=== PATIENT | male | born 1980 ===

== ENCOUNTER 2019-10-01 00:26 | Inpatient (IN) | payer OTHER, SELFPAY ==
[2019-10-01] VITALS (7 sets, daily range): BP systolic 133–159; BP diastolic 75–110; PULSE 54–100; RESP 16–20; TEMP 36.7–37.2; O2SAT 95–100; BMI 17.6
--- NOTE | ~2019-10-01 | CT_ITS ---
EXAMINATION: CT abdomen pelvis w con DATE: 10/01/2019 04:47 INDICATION: Upper abdominal pain. TECHNIQUE: Computed tomography (CT) of the abdomen and pelvis was performed with 100 mL Omnipaque 350 intravenous contrast. Automated exposure control and iterative reconstruction technique were employe d. The dose-length product was 197.70 mGy-cm. COMPARISON: CT abdomen 07/19/2004, pelvis radiograph 09/22/2003 FINDINGS: The visualized portions of the lung bases are clear without pneumonia or pleural effusion. The heart size is normal. No pericardial effusion. There is diffuse hepatic steatosis. The gallbladde r, spleen, adrenal glands, and kidneys are normal. There is edema in the retroperitoneum centered at the pancreas, consistent with acute interstitial pancreatitis. There is a small volume of ascites. Th ere are no dilated loops of bowel. The appendix is normal. There are no pathologically enlarged lymph nodes. There is moderate lower lumbar spondylosis. There is a 6 mm radiopaque foreign body in the ri ght gluteus darian muscle that was present on 09/22/2003. There are 2 sclerotic lesions in the left i lium with the larger measuring 15 mm. IMPRESSION: 1. Acute interstitial pancreatitis. 2. Small volume of ascites. 3. Sclerotic lesions in the left ilium, most likely osteonecrosis or enchondromas. Reviewed, dictated and finalized at location [facility]. IMPRESSION: 1. Acute interstitial pancreatitis. 2. Small volume of ascites. 3. Sclerotic lesions in the left ilium, most likely osteonecrosis or enchondrom as.
[2019-10-01 02:37] LABS: Basophils Percent Auto 0.4 % (0.2-1.2); Eosinophils Absolute Auto 0.1 K/mm3 (0-0.3); Eosinophils Percent Auto 1.5 % (0-4.4); Hematocrit 43.8 % (42.0-52.0); Hemoglobin 15.5 g/dL (14.0-18.0); Immature Granulocyte Absolute 0.03 K/mm3 (0.00-0.031); Immature Granulocyte Percent A 0.4 % (0-0.5); Lymphocytes Percent Auto 13.5 % (18.3-44.2); Mean Corpuscular HGB Conc 35.4 g/dl (32-36); Mean Corpuscular Hemoglobin 34.1 pg (26-34); Mean Corpuscular Volume 96.5 fl (80-100); Mean Platelet Volume 11.6 fl (7.4-10.4); Monocytes Absolute Auto 0.8 K/mm3 (0.1-0.6); Monocytes Percent Auto 9.3 % (2.6-8.5); Neutrophils Absolute Auto 6.1 K/mm3 (1.3-6.7); Neutrophils Percent Auto 74.9 % (45.5-73.1); Platelet Count Result 194 k/mm3 (150-375); Red Blood Count 4.54 M/mm3 (4.6-6.20); Red Cell Distribution Width 11.8 % (11.5-14.5); White Blood Count 8.1 K/mm3 (4.5-10.0)
[2019-10-01 03:02] LABS: Add Urine Microscopic? YES; Appearance Urine Clear (Clear); Bacteria Urine Trace /hpf; Bilirubin Urine Negative (Negative); Blood Urine 1+ (Negative); Color Urine Yellow (Yellow); Glucose Urine UA Negative (Negative); Ketones Urine 2+ mg/dL (Negative); Leukocyte Esterase Ur Negative LEU/UL (Negative); Mucus Urine Few /lpf; Nitrate Urine Negative (Negative); Protein Urine Negative (Negative); Specific Grav Ur 1.014 (1.001-1.035); Urobilinogen Urine Negative mg/dL (<2.0); WBC Urine 0-3 /hpf
[2019-10-01 03:10] LABS: Alanine Aminotransferase 136 U/L (4-50); Alkaline Phosphatase 171 U/L (38-126); Aspartate Amino Transferase 316 U/L (17-59); Bilirubin,Total 2.6 mg/dL (0.2-1.3); Blood Urea Nitrogen 8 mg/dL (9-20); Calcium 8.9 mg/dL (8.4-10.2); Carbon Dioxide 26 mmol/L (22-30); Chloride 101 mmol/L (98-107); Estimated Glomerular Filt Rate > 60; Glucose 110 mg/dL (75-110); Potassium 3.2 mmol/L (3.4-5.0); Sodium 135 mmol/L (137-145)
[2019-10-01 03:20] LABS: Lipase 9843 U/L (23-300)
--- NOTE | 2019-10-01 04:16 | ED.ABDPAIN ---
HPI - Abdominal Pain General Chief Complaint: Abdominal Pain Stated Complaint: upper abd pain Time Seen by Provider: 10/01/19 04:07 Source: patient Mode of arrival: ambulatory History of Present Illness HPI narrative: This patient is a 39 year old male with heavy alcohol use who presents for evaluation severe upper abdominal pain. Patient states he developed severe upper abdominal Sunday morning after eating breakfast. His pain has been constant and it is worsening. He denies nausea, vomiting or fever with his pain. He denies previous symptoms in the past . He also denies history of gallbladder disease or pancreatitis. He drinks alcohol daily . HE denies history of alcohol withdrawal symptoms in the past. MD elicited complaint: abdominal pain Onset (ago): day(s) (1) Location: epigastric Exacerbating factors: eating Related Data Home Medications Medication Instructions Recorded Confirmed albuterol sulfate [Ventolin HFA] 2 puff INHALATION QID PRN 10/01/19 10/01/19 lisinopril-hydrochlorothiazide 1 tablet PO DAILY 10/01/19 10/01/19 omeprazole 20 mg PO DAILY 10/01/19 10/01/19 Allergies Allergy/AdvReac Type Severity Reaction Status Date / Time No Known Allergies Allergy Unverified 10/01/19 02:36 Review of Systems Review of Systems: All systems reviewed & are unremarkable except as noted in HPI and below Constitutional: Constitutional: Denies chills and Denies fever(s) Gastrointestinal: Gastrointestinal: Reports abdominal pain, Denies constipation, Denies diarrhea and Denies vomiting PMFSH Past Medical History Medical History (Updated 10/01/19 @ 05:13 by Caroline Del Cid MD) Patient denies medical problems Social History Social History (Updated 10/01/19 @ 04:18 by Caroline Del Cid MD) Smoking status: Never smoker Alcohol intake: current Drinks per week: 3 Alcohol use details: a few shots and a beer daily, last alcohol use Sunday Substance use: never Gender identity (if verbalized by the patient): Male Spiritual care concerns: No Exam Const: General: alert Orientation/consciousness: patient oriented x3 Other: restless, standing pacing due to severe pain. Eyes: Pupils: Equal, round and reactive pupils present EOM: EOMs intact bilaterally Chest: Chest palpation & inspection: normal inspection of the chest Resp: Effort & Inspection: normal respiratory effort Auscultation: clear to auscultation bilaterally Cardio: Rate: regular rate Rhythm: regular rhythm Heart sounds: no murmurs GI: GI Palp: Yes Soft to palpation, Yes Tenderness to palpation present (GI) (upper abdomen), Yes Guarding due to palpation present (GI) and No Rigid due to palpation Skin: General skin exam: normal color Rashes: no rashes Extrem: General: no pedal edema Course Reevaluation(s) Reevaluation #1: I have discussed with patient that he has severe pancreatitis due to alcohol use. Date: 10/01/19 Time: 05:10 Consultations Consultation #1: I discussed case with Dr. verdugo who accepts patient for alcoholic pancreatits. she recommends IVF at rate 200 ml/hr Date: 10/01/19 Time: 05:11 Vital Signs Vital signs: Vital Signs Temperature 98.9 F 10/01/19 01:01 Pulse Rate 100 10/01/19 01:01 Respiratory Rate 20 10/01/19 01:01 Blood Pressure 155/110 H 10/01/19 01:01 Pulse Oximetry 100 10/01/19 01:01 Temperature 98.3 F 10/01/19 06:00 Pulse Rate 54 L 10/01/19 06:00 Respiratory Rate 18 10/01/19 06:00 Blood Pressure 155/91 H 10/01/19 06:00 Pulse Oximetry 95 10/01/19 06:00 MDM - Abdominal Pain Lab Data Attestation: I reviewed the patient's lab results. Result diagrams: 10/01/19 01:09 10/01/19 01:09 Labs: Lab Results 10/01/19 10/01/19 10/01/19 Range/Units 01:09 01:09 02:38 WBC 8.1 (4.5-10.0) K/mm3 RBC 4.54 L (4.6-6.20) M/mm3 Hgb 15.5 (14.0-18.0) g/dL Hct 43.8 (42.0-52.0) % MCV 96.5 (80-100) fl MCH 34.1 H
[2019-10-01] MEDS: LACTATED RINGERS 1,000 ML 999 ML IV CONT (04:30)
[2019-10-01] MEDS: ONDANSETRON INJ 4 MG/2 ML VIAL IV PUSH ×2 (04:30→20:00)
[2019-10-01] MEDS: HYDROMORPHONE HCL 1 MG/ML INJ IV PUSH ×4 (04:30→12:46)
--- NOTE | 2019-10-01 05:35 | ADMGEN ---
This patient, Van Echevarria, was admitted to Medical Room 343-01. Patient/family oriented to hospital policies and general routines including ID bracelet, bed and alarms, visiting hours, pain management, procedures, bathroom and other care routines, personal items, smoking policy, room service/diet, and visiting hours. Valuables list has been completed. Information on how to activate the Rapid Response Team has been discussed. Patient/Family are encouraged to report perceived risks to care and to ask questions if they do not understand what they are told or what they should do.
[2019-10-01] MEDS: SODIUM CHLORIDE 0.9% IV 1,000 ML 200 ML IV CONT ×2 (06:06→12:06)
[2019-10-01] MEDS: PANTOPRAZOLE SODIUM IV 40 MG VIAL IV PUSH (08:44)
[2019-10-01] MEDS: HYDROMORPHONE HCL 1 MG/ML INJ 2 MG IV PUSH ×2 (15:52→20:00)
--- NOTE | 2019-10-01 18:02 | PM.IMHP ---
H&P: HPI History of Present Illness Chief complaint: acute alcholic pancretitis Narrative: Van Echevarria is a 39 year old male admitted with severe abdominal pains, last on Sunday then moving to the back 02/06 today is 10/07. Pt never had this problem before. Pt likes to drink 5-6 beers a day. to help him relax. pt has a history of gerd and takes omeprazole for this. Admission ct shows - 1. Acute interstitial pancreatitis. 2. Small volume of ascites. 3. Sclerotic lesions in the left ilium, most likely osteonecrosis or enchondromas. Lipase level is extremely high at 9834 Pt is usually healthy man history of HTN and hypercholesteremia. Review of Systems Review of Systems: All systems reviewed & are unremarkable except as noted in HPI and below Gastrointestinal: Comments: Abdominal pains severe PMFSH Past Medical History Medical History Patient denies medical problems Social History Social History Smoking status: Never smoker Alcohol intake: current Drinks per week: 3 Alcohol use details: a few shots and a beer daily, last alcohol use Sunday Substance use: never Gender identity (if verbalized by the patient): Male Spiritual care concerns: No Meds Home Medications and Allergies Home Medications Medication Instructions Recorded Confirmed Type albuterol sulfate [Ventolin HFA] 2 puff INHALATION QID PRN 10/01/19 10/01/19 History lisinopril-hydrochlorothiazide 1 tablet PO DAILY 10/01/19 10/01/19 History omeprazole 20 mg PO DAILY 10/01/19 10/01/19 History Allergies Allergy/AdvReac Type Severity Reaction Status Date / Time No Known Allergies Allergy Unverified 10/01/19 02:36 Vital Signs Vital Signs - 24 hr 10/01/19 01:01 10/01/19 05:23 10/01/19 06:00 Temperature 37.2 C 37.1 C 36.8 C Pulse Rate 100 60 54 L Respiratory Rate 20 17 18 Blood Pressure 155/110 H 159/96 H 155/91 H Pulse Oximetry 100 100 95 10/01/19 14:00 Temperature 36.7 C Pulse Rate 60 Respiratory Rate 20 Blood Pressure 139/85 Pulse Oximetry 97 Exam Const: General: well developed Nutritional Appearance: well nourished HENMT: Head: normocephalic Eyes: General: appearance normal, both eyes and all related structures Pupils: Equal, round and reactive pupils present Neck: Neck: supple Chest: Chest palpation & inspection: normal inspection of the chest Resp: Effort & Inspection: normal respiratory effort Auscultation: clear to auscultation bilaterally Cardio: Jugular venous distension: no JVD Rhythm: regular rhythm Heart sounds: S1 normal heart sound present and S2 normal heart sound present GI: Inspection: normal to inspection GI Palp: Yes Tenderness to palpation present (GI) (over epigastric area ) and Yes Guarding due to palpation present (GI) Auscultation: normal bowel sounds : General: Yes no CVA tenderness Back/Spine/Pelvis: Back: no CVA tenderness Skin: General skin exam: normal color and dry skin Neuro: Cranial nerves: Yes CN's II-XII intact bilaterally and Yes Equal, round and reactive pupils present Cognition (Neuro): normal cognition Speech: normal speech Motor exam (neuro): 5/5 motor strength present throughout Extrem: General: normal to inspection Psych: Appearance: grossly normal Mental Status: mental status grossly normal H&P: Results Labs Labs: Short CBC 10/01/19 Range/Units 01:09 WBC 8.1 (4.5-10.0) K/mm3 Hgb 15.5 (14.0-18.0) g/dL Hct 43.8 (42.0-52.0) % Plt Count 194 (150-375) k/mm3 BMP 10/01/19 01:09 Sodium 135 L Potassium 3.2 L Chloride 101 Carbon Dioxide 26 BUN 8 L Creatinine 0.70 Glucose 110 Calcium 8.9 Liver Function 10/01/19 Range/Units 01:09 Total Bilirubin 2.6 H (0.2-1.3) mg/dL AST 316 H (17-59) U/L ALT 136 H (4-50) U/L Alkaline Phosphatase 171 H (38-126) U/L Albumin 4.0
[2019-10-01] MEDS: SODIUM CHLORIDE 0.9% IV 1,000 ML 75 ML IV CONT (18:34)
[2019-10-01] MEDS: THIAMINE HCL 200 MG/2 ML VIAL 100 MG IM (18:35)
[2019-10-01 19:16] LABS: Lipase 9656 U/L (23-300)
[2019-10-02] VITALS (9 sets, daily range): BP systolic 136–148; BP diastolic 86–108; PULSE 74–109; RESP 14–20; TEMP 36.4–37; O2SAT 94–97
[2019-10-02] MEDS: HYDROMORPHONE HCL 1 MG/ML INJ 2 MG IV PUSH ×5 (00:18→19:29)
[2019-10-02] MEDS: ONDANSETRON INJ 4 MG/2 ML VIAL IV PUSH ×5 (00:18→19:27)
[2019-10-02 05:46] LABS: Basophils Percent Auto 0.1 % (0.2-1.2); Eosinophils Percent Auto 0.1 % (0-4.4); Hematocrit 41.5 % (42.0-52.0); Hemoglobin 14.2 g/dL (14.0-18.0); Immature Granulocyte Absolute 0.11 K/mm3 (0.00-0.031); Immature Granulocyte Percent A 0.7 % (0-0.5); Lymphocytes Absolute Auto 0.66 K/mm3 (0.9-3.2); Lymphocytes Percent Auto 4.5 % (18.3-44.2); Mean Corpuscular HGB Conc 34.2 g/dl (32-36); Mean Corpuscular Volume 99.3 fl (80-100); Monocytes Percent Auto 6.9 % (2.6-8.5); Neutrophils Absolute Auto 12.9 K/mm3 (1.3-6.7); Neutrophils Percent Auto 87.7 % (45.5-73.1); Platelet Count Result 152 k/mm3 (150-375); Red Blood Count 4.18 M/mm3 (4.6-6.20); Red Cell Distribution Width 11.7 % (11.5-14.5); White Blood Count 14.7 K/mm3 (4.5-10.0)
--- NOTE | 2019-10-02 05:59 | PC.NURSE ---
intake was 3 small cups of ice chips
[2019-10-02 06:04] LABS: Alanine Aminotransferase 78 U/L (4-50); Albumin Level 3.2 g/dL (3.5-5.1); Alkaline Phosphatase 114 U/L (38-126); Aspartate Amino Transferase 132 U/L (17-59); Bilirubin,Total 1.2 mg/dL (0.2-1.3); Blood Urea Nitrogen 4 mg/dL (9-20); Calcium 7.8 mg/dL (8.4-10.2); Carbon Dioxide 25 mmol/L (22-30); Chloride 102 mmol/L (98-107); Estimated CRCL calculation 98 ml/min; Estimated Glomerular Filt Rate > 60; Glucose 74 mg/dL (75-110); Potassium 3.4 mmol/L (3.4-5.0); Sodium 133 mmol/L (137-145)
[2019-10-02 06:37] LABS: Lipase 4984 U/L (23-300)
[2019-10-02] MEDS: SODIUM CHLORIDE 0.9% IV 1,000 ML 75 ML IV CONT ×2 (08:14→22:20)
[2019-10-02] MEDS: PANTOPRAZOLE SODIUM IV 40 MG VIAL IV PUSH (08:14)
--- NOTE | 2019-10-02 14:57 | PM.IMPN ---
Progress Note: A&P Assessment and Plan (1) Acute alcoholic pancreatitis: Code(s): K85.20 - Alcohol induced acute pancreatitis without necrosis or infection Status: Acute Assessment and Plan: pt is npo with iv fluids, pt is on iv dilaudid continue to watch, continue to monitor lipase levels. started on clears today, lipase is down from 9000 to 4000 (2) Alcohol use: Code(s): Z72.89 - Other problems related to lifestyle Status: Acute Assessment and Plan: watch for any DT ciwa ordered (3) HTN (hypertension): Code(s): I10 - Essential (primary) hypertension Status: Acute Assessment and Plan: oral bp medications are on hold pt can use iv hydralazine prn high bps Subjective Date/time seen: 10/02/19 14:57 Interval history: Van Echevarria is a 39 year old male admitted alcoholic pancreatitis, abdominal pains are better, lipase level coming down will try pt on clears today. few shakes yesterday but no actual tremor. Review of Systems Review of Systems: All systems reviewed & are unremarkable except as noted in HPI and below Gastrointestinal: Gastrointestinal: Reports abdominal pain, Denies nausea and Denies vomiting Exam Const: General: well developed Nutritional Appearance: well nourished Chest: Chest palpation & inspection: normal inspection of the chest Resp: Effort & Inspection: normal respiratory effort Auscultation: clear to auscultation bilaterally Cardio: Jugular venous distension: no JVD Rhythm: regular rhythm Heart sounds: S1 normal heart sound present and S2 normal heart sound present GI: Inspection: normal to inspection GI Palp: Yes abdominal tenderness and Yes Other GI palpation findings present (epigastric mild ) Neuro: Cranial nerves: Yes CN's II-XII intact bilaterally and Yes Equal, round and reactive pupils present Cognition (Neuro): normal cognition Speech: normal speech Motor exam (neuro): 5/5 motor strength present throughout Extrem: General: normal to inspection Psych: Appearance: grossly normal Mental Status: mental status grossly normal Objective Data Vital Signs Vital Signs: Vital Signs - 24 hr 10/01/19 18:31 10/01/19 20:00 10/01/19 20:29 Temperature 36.8 C Pulse Rate 69 Pulse Rate [Right Monitor] 88 69 Respiratory Rate 16 Blood Pressure 133/75 Pulse Oximetry 96 10/02/19 00:36 10/02/19 04:46 10/02/19 04:59 Temperature 37.0 C Pulse Rate 76 Pulse Rate [Right Monitor] 74 74 Respiratory Rate 14 Blood Pressure 141/86 H 141/86 H Pulse Oximetry 94 10/02/19 05:00 10/02/19 08:00 10/02/19 12:00 Temperature Pulse Rate Pulse Rate [Right Monitor] 80 82 96 Respiratory Rate Blood Pressure 137/86 136/101 H Pulse Oximetry 10/02/19 14:36 Temperature 36.4 C Pulse Rate 109 H Pulse Rate [Right Monitor] Respiratory Rate 20 Blood Pressure 148/95 H Pulse Oximetry 97 Intake/Output Intake/Output: Intake & Output 09/29/19 09/30/19 10/01/19 10/02/19 23:59 23:59 23:59 23:59 Intake Total 2900 1450 Output Total 1200 900 Balance 1700 550 Meds/Results Medications: Active Medications Generic Name Dose Route Start Last Admin Trade Name Freq PRN Reason Stop Dose Admin Hydralazine HCl 10 mg 10/01/19 18:13 Apresoline Hcl Inj IV PUSH Q8H PRN Blood Pressure - High Hydromorphone HCl 2 mg 10/02/19 10:09 Dilaudid Inj IV PUSH Q6H PRN Pain Rated 7-10 Sodium Chloride 1,000 mls @ 75 mls/hr 10/01/19 05:10 10/02/19 08:14 Normal Saline Iv IV CONT 75 mls/hr .[id number] SARAH Administration Lorazepam 0.5 mg 10/01/19 18:13 Ativan Inj IV PUSH Q6H PRN Alcohol Withdrawal Ondansetron HCl 4 mg 10/01/19 05:08 10/02/19 08:58 Zofran Inj IV PUSH 4 mg Q4H PRN Administration Nausea Pantoprazole Sodium 40 mg 10/01/19 09:00 10/02/19 08:14 Protonix Iv IV PUSH 40 mg QAM SARAH Administration Radiology Results:
[2019-10-02 18:38] LABS: Lipase 1810 U/L (23-300)
[2019-10-03] VITALS (8 sets, daily range): BP systolic 140–161; BP diastolic 92–109; PULSE 79–97; RESP 16–18; TEMP 36.2–36.3; O2SAT 94–98
[2019-10-03] MEDS: ONDANSETRON INJ 4 MG/2 ML VIAL IV PUSH ×3 (01:33→20:39)
[2019-10-03] MEDS: HYDROMORPHONE HCL 1 MG/ML INJ 2 MG IV PUSH ×2 (01:36→12:14)
[2019-10-03] MEDS: PANTOPRAZOLE SODIUM IV 40 MG VIAL IV PUSH (08:05)
--- NOTE | 2019-10-03 11:13 | PCNFU ---
Nutrition Follow-Up Complete: Underweight as related to decreased muscle mass as evidenced by BMI: 17.6 Goal: adequate intake of at least 75% of meals Progressing towards goal. We will continue current goal. Pt current nutrition is Clear liquid advancing to Soft and Bite Sized, Level 6. Nutrition recommendation: Agree Last recorded weight is 57.2 kg. Bowel Motility:+BM noted 09/29 Labs Reviewed:Alb 3.2,Na 133,BUN 4,Glu 74 Meds Noted:Juani Ordaz Additional Notes: I spoke with patient today, he was working on his clear liquid tray. He is trying to drink some of the Ensure Clear which is providing an additional 240 kcals and 8 gms protein. He states to Nausea today. Diet order has been advanced to a soft and bite sized, Level 6 diet for lunch. PO intake encouraged. Monitoring:will monitor every 3 days.
[2019-10-03] MEDS: SUCRALFATE SUSP 100 MG/ML 10 ML UDC 1000 MG PO ×3 (12:13→20:41)
[2019-10-03] MEDS: SODIUM CHLORIDE 0.9% IV 1,000 ML 75 ML IV CONT (12:17)
--- NOTE | 2019-10-03 13:07 | PM.IMPN ---
Progress Note: A&P Assessment and Plan (1) Acute alcoholic pancreatitis: Code(s): K85.20 - Alcohol induced acute pancreatitis without necrosis or infection Status: Acute Assessment and Plan: Pt is on soft diet, pt is on iv dilaudid iv every 6hours, continue to watch, continue to monitor lipase levels, hopeful discharge soon (2) Alcohol use: Code(s): Z72.89 - Other problems related to lifestyle Status: Acute Assessment and Plan: Watch for any DT Ciwa ordered Adviced to cut back drinking beer every day likes to drink 5-6 beers a day (3) HTN (hypertension): Code(s): I10 - Essential (primary) hypertension Status: Acute Assessment and Plan: Restart pts Bp medications Subjective Date/time seen: 10/03/19 13:07 Interval history: Van Echevarria is a 39 year old male admitted alcoholic pancreatitis, abdominal pains are better, lipase level coming down will try pt on soft diet today. no signs of DT. Review of Systems Review of Systems: All systems reviewed & are unremarkable except as noted in HPI and below Gastrointestinal: Gastrointestinal: Denies abdominal pain and Reports dyspepsia Exam Const: General: well developed Nutritional Appearance: well nourished HENMT: Head: normocephalic Eyes: General: appearance normal, both eyes and all related structures Pupils: Equal, round and reactive pupils present Neck: Neck: supple Chest: Chest palpation & inspection: normal inspection of the chest Resp: Effort & Inspection: normal respiratory effort Auscultation: clear to auscultation bilaterally Cardio: Jugular venous distension: no JVD Rhythm: regular rhythm Heart sounds: S1 normal heart sound present and S2 normal heart sound present GI: Inspection: normal to inspection and other (no abdominal tenderness ) Skin: General skin exam: normal color and dry skin Neuro: Cranial nerves: Yes CN's II-XII intact bilaterally and Yes Equal, round and reactive pupils present Cognition (Neuro): normal cognition Speech: normal speech Motor exam (neuro): 5/5 motor strength present throughout Extrem: General: normal to inspection Psych: Appearance: grossly normal Mental Status: mental status grossly normal Objective Data Vital Signs Vital Signs: Vital Signs - 24 hr 10/02/19 14:36 10/02/19 16:00 10/02/19 22:00 Temperature 36.4 C 36.6 C Pulse Rate 109 H 90 Pulse Rate [Right Monitor] 96 Respiratory Rate 20 16 Blood Pressure 148/95 H 139/104 H 148/108 H Pulse Oximetry 97 95 10/03/19 04:54 10/03/19 08:00 10/03/19 12:00 Temperature 36.3 C L Pulse Rate 91 Pulse Rate [Right Monitor] 96 96 Respiratory Rate 16 Blood Pressure 140/99 H 140/99 H 140/99 H Pulse Oximetry 94 Intake/Output Intake/Output: Intake & Output 09/30/19 10/01/19 10/02/19 10/03/19 23:59 23:59 23:59 23:59 Intake Total 2900 2690 1500 Output Total 1200 900 150 Balance 1700 1790 1350 Meds/Results Medications: Active Medications Generic Name Dose Route Start Last Admin Trade Name Freq PRN Reason Stop Dose Admin Hydralazine HCl 10 mg 10/01/19 18:13 Apresoline Hcl Inj IV PUSH Q8H PRN Blood Pressure - High Hydromorphone HCl 2 mg 10/02/19 10:09 10/03/19 12:14 Dilaudid Inj IV PUSH 2 mg Q6H PRN Administration Pain Rated 7-10 Sodium Chloride 1,000 mls @ 75 mls/hr 10/01/19 05:10 10/03/19 12:17 Normal Saline Iv IV CONT 75 mls/hr .[id number] SARAH Administration Lorazepam 0.5 mg 10/01/19 18:13 Ativan Inj IV PUSH Q6H PRN Alcohol Withdrawal Ondansetron HCl 4 mg 10/01/19 05:08 10/03/19 08:05 Zofran Inj IV PUSH 4 mg Q4H PRN Administration Nausea Pantoprazole Sodium 40 mg 10/01/19 09:00 10/03/19 08:05 Protonix Iv IV PUSH 40 mg QAM SARAH Administration Sucralfate 1,000 mg 10/03/19 11:28 10/03/19 12:13 Carafate PO 1,000 mg TID PRN Administration Heartburn Radiology
[2019-10-03 15:45] LABS: Lipase 582 U/L (23-300)
[2019-10-03] MEDS: hydrALAZINE HCL 20 MG/ML VIAL 10 MG IV PUSH (20:39)
[2019-10-03] MEDS: HYDROMORPHONE HCL 1 MG/ML INJ IV PUSH (20:40)
[2019-10-04] VITALS (8 sets, daily range): BP systolic 122–146; BP diastolic 78–97; PULSE 68–92; RESP 15–20; TEMP 36.2–36.6; O2SAT 96–100
[2019-10-04] MEDS: SUCRALFATE SUSP 100 MG/ML 10 ML UDC 1000 MG PO ×3 (00:15→20:17)
[2019-10-04 08:27] LABS: Hematocrit 39.8 % (42.0-52.0); Hemoglobin 13.8 g/dL (14.0-18.0); Mean Corpuscular HGB Conc 34.7 g/dl (32-36); Mean Corpuscular Hemoglobin 33.4 pg (26-34); Mean Corpuscular Volume 96.4 fl (80-100); Mean Platelet Volume 10.5 fl (7.4-10.4); Platelet Count Result 214 k/mm3 (150-375); Red Blood Count 4.13 M/mm3 (4.6-6.20); Red Cell Distribution Width 11.3 % (11.5-14.5); White Blood Count 5.4 K/mm3 (4.5-10.0)
[2019-10-04] MEDS: PANTOPRAZOLE SODIUM IV 40 MG VIAL IV PUSH (08:48)
[2019-10-04] MEDS: lisinopriL 20 MG TABLET PO (08:48)
[2019-10-04] MEDS: hydroCHLOROthiazide 25 MG TABLET PO (08:48)
[2019-10-04 08:50] LABS: Lipase 1087 U/L (23-300)
[2019-10-04 09:07] LABS: Blood Urea Nitrogen 10 mg/dL (9-20); Calcium 8.5 mg/dL (8.4-10.2); Carbon Dioxide 32 mmol/L (22-30); Chloride 94 mmol/L (98-107); Estimated CRCL calculation 98 ml/min; Estimated Glomerular Filt Rate > 60; Glucose 100 mg/dL (75-110); Potassium 3.3 mmol/L (3.4-5.0); Sodium 130 mmol/L (137-145)
--- NOTE | 2019-10-04 11:36 | PM.IMPN ---
Progress Note: A&P Assessment and Plan (1) Acute alcoholic pancreatitis: Code(s): K85.20 - Alcohol induced acute pancreatitis without necrosis or infection Status: Acute Assessment and Plan: He presented with severe abdominal pain. CT abd/pelvis revealed acute interstitial pancreatitis. Lipase was elevated at 9656 initially and trended down. IV fluids were discontinued yesterday as his lipase was trending down. He refused his meals yesterday. He did not eat today because he reports that he thought he was going home. I have encouraged that he try a clear liquid diet today and advance as tolerated. He reports that his pain, nausea, and vomiting have resolved. His lipase is elevated today at 1502 (previously 582 10/03). Plan to resume IV fluids. Will continue to monitor. (2) Alcohol use: Code(s): Z72.89 - Other problems related to lifestyle Status: Acute Assessment and Plan: The patient reports that he drinks approximately 6 beers per day. He has expressed the desire to quit drinking and plans to stop drinking at discharge. Alcohol cessation was encouraged. Continue CIWA protocol with ativan PRN. (3) HTN (hypertension): Code(s): I10 - Essential (primary) hypertension Status: Acute Assessment and Plan: Blood pressures were reviewed and are improving. Lisinopril and hydrochlorothiazide were resumed today. Will conitnue to monitor. (4) GERD (gastroesophageal reflux disease): Code(s): K21.9 - Gastro-esophageal reflux disease without esophagitis Status: Acute Assessment and Plan: He reported heartburn yesterday which he states has resolved today. Continue protonix. Continue sucralfate PRN. Will continue to monitor. Subjective Date/time seen: 10/04/19 11:36 Interval history: Mr. Echevarria is seen and examined at bedside in follow-up for pancreatitis. He has a hx of alcohol dependence. He reports that he is feeling much better today and is requesting to leave. He denies nausea, vomiting, and abdominal pain. He reported heartburn yesterday which he reports has resolved. He did not eat breakfast today and states that this is because he thought he was leaving. He has no other concerns. He had a bowel movement yesterday and is passing gas. He has no other complaints at this time. Review of Systems Review of Systems: All systems reviewed & are unremarkable except as noted in HPI and below Exam Narrative: Exam Narrative: General: Pleasant, well-developed, and well-nourished 39 y.o. male who is lying in the semi-recumbent position in bed in no acute distress. HEENT: Normocephalic and atraumatic. Conjunctivae and lids normal. EOMI. Mucous membranes moist. Neck: Supple without lymphadenopathy or masses. Cardiac: Regular rate and rhythm. S1 and S2 normal. Lungs: Effort normal. Lungs are clear to auscultation bilaterally. Abdomen: Bowel sounds are normoactive. Abdomen is soft, non-distended, and non-tender. No rebound or guarding present. Extremities: No edema to the lower extremities bilaterally. Shahnaz negative. Neurological: Alert. Exam is non-focal. Speech is clear. No tremor appreciated. Skin: Warm and dry. Turgor normal. Psychiatric: Judgment and insight intact. Mood pleasant and affect normal. Objective Data Vital Signs Vital Signs: Vital Signs - 24 hr 10/03/19 12:00 10/03/19 14:00 10/03/19 16:00 Temperature 97.2 F L Pulse Rate 79 Pulse Rate [Right Monitor] 96 96 Respiratory Rate 18 Blood Pressure 140/99 H 152/109 H 152/109 H Pulse Oximetry 98 10/03/19 18:30 10/03/19 20:23 10/03/19 20:57 Temperature 97.3 F L Pulse Rate 97 Pulse Rate [Right Monitor] 97 Respiratory Rate 16 Blood Pressure 144/92 H 161/97 H Pulse Oximetry 95 10/04/19 00:00 10/04/19 04:38 10/04/19 05:07 Temperature 98 F Pulse Rate 89 Pulse Rate [Right Monitor] 68 92 Respiratory Rate 16 Blood Pressure 143/97 H Pulse Oximetry 9
[2019-10-04 12:02] LABS: Lipase 1502 U/L (23-300)
[2019-10-04] MEDS: POTASSIUM CHLORIDE 20 MEQ TABLET 40 MEQ PO (12:20)
[2019-10-04] MEDS: LACTATED RINGERS 1,000 ML 150 ML IV CONT ×2 (12:21→18:45)
[2019-10-04 13:43] LABS: Alanine Aminotransferase 43 U/L (4-50); Albumin Level 3.5 g/dL (3.5-5.1); Alkaline Phosphatase 123 U/L (38-126); Aspartate Amino Transferase 64 U/L (17-59)
[2019-10-04] MEDS: LORAZEPAM INJ 2 MG/ML VIAL 0.5 MG IV PUSH (20:16)
--- NOTE | 2019-10-04 21:52 | PM.EVENT ---
Event Note Event Note Event Note: Nursing informed me that that patient has decided to SIGN OUT AGAINST MEDICAL ADVICE as he stated He was done with this place'. The patient was alert and oriented per nursing. On my arrival to the floor the patient has already signed out and left.
--- NOTE | 2019-10-05 01:03 | PC.NURSE ---
PT INQUIRING ABOUT LEAVING AGAINST MEDICAL ADVICE PROTOCOLS. ALSO ASKING THIS NURSE ON IF I WAS AWARE OF THE PARTICULARS OF WHY HE WAS HERE. AFTER ACKNOWLEDGING HIS SITUATION PATIENT STATES ' THEN YOU SEE WHY I CAN'T DO THIS ANYMORE . EDUCATED PATIENT ON CURRENT CONDITION AND TREATMENTS RELATED TO HIS CARE. PATIENT VERBALIZED HIS UNDERSTANDING ALONG WITH THE DECISION TO PROCEED WITH LEAVING AMA. BOTH FINANCIAL AID AND HOSPITALIST ON STAFF WERE NOTIFIED. FINANCIAL AID CAME TO SPEAK TO PATIENT. PATIENT MAINTAINED HIS DESIRE TO LEAVE AMA. AMA PAPERWORK WAS SIGNED BY PATIENT AND HE WAS ESCORTED OUTSIDE WITH BELONGINGS IN HAND.
== END 2019-10-04 21:15 | disposition left against medical advice (07) | DRG 440 ==
LOC: ANHED 05:13 → ANH3MED 08:50
PROVIDERS: Family Medicine; Admitting Provider Internal Medicine; Emergency Provider General Practice; PCP Family Medicine; Visit Provider Physician Assistant
DX: K85.20 Alcohol induced acute pancreatitis without necrosis or infection (principal); F10.20 Alcohol dependence, uncomplicated; I10 Essential (primary) hypertension; K21.9 Gastro-esophageal reflux disease without esophagitis
CPT/HCPCS: 36415; 74177; 80048; 80053; 81001; 83690; 85025; 85027; 96361; 96374; 96375; 99285; A9270; C9113; J0360; J1170; J2060; J2405; J3411; J7030; J7120; Q9967

== ENCOUNTER 2020-07-21 11:27 | Outpatient (CLI) | payer OTHER, SELFPAY ==
--- NOTE | ~2020-07-21 | US_ITS ---
US right upper quadrant DATE: 07/21/2020 11:57 INDICATION: Acute pancreatitis without necrosis TECHNIQUE: Real-time imaging of the liver, pancreas, gallbladder areas COMPARISON: 10/01/[address] abdomen pelvis FINDINGS: There is enlargement and heterogeneous echotexture of the pancreas and peripancreatic fluid , consistent with pancreatitis. There is a fluid containing structure adjacent to the pancreas, most likely fluid distended stomach. Consider CT abdomen correlation. No hepatic space-occupying mass lesi on is evident. Hepatic steatosis. Normal hepatopedal portal venous flow direction. No gallstones or gallbladder wall thickening. Negative sonographic Em's sign. The common bile zoya t measures 3.3 mm, normal. IMPRESSION: Enlargement and heterogeneous echotexture of the pancreas and peripancreatic fluid, consi stent with pancreatitis Reviewed, dictated and finalized at [facility]. Reviewed, dictated and finalized at location [facility]. IMPRESSION: Enlargement and heterogeneous echotexture of the pancreas and perip ancreatic fluid, consistent with pancreatitis
== END 2020-07-21 11:28 | disposition home or self-care (01) ==
PROVIDERS: PCP Family Medicine; Visit Provider Physician Assistant
DX: K85.90 Acute pancreatitis without necrosis or infection, unspecified (principal)
CPT/HCPCS: 76705

== ENCOUNTER 2024-07-28 11:56 | Emergency (ER) | payer OTHER, SELFPAY ==
[2024-07-28 12:05] VITALS: BP 176/96; PULSE 102; RESP 16; TEMP 36.4; O2SAT 99
--- NOTE | 2024-07-28 12:15 | ED.WOUNDLAC ---
HPI - Wound/Laceration General Chief Complaint: Wound/Laceration Stated Complaint: Head Injury Source: patient Mode of arrival: ambulatory Limitations: no limitations History of Present Illness HPI narrative: 44 y/o male presented for c/o laceration to right frontal scalp area sustained today while at work. Says a steel beam fell down from the ceiling and struck his head and right leg. Denies LOC. Denies headache, vision changes, dizziness, nausea, vomiting, numbness, tingling or weakness. Endorses bruising to the right inner thigh without open wounds. On arrival pt declines to update tetanus and declines doretha. Related Data Home Medications ?Medication ?Instructions ?Recorded ?Confirmed ?Last Taken ?Type omeprazole 20 mg capsule,delayed 20 mg PO DAILY 10/01/19 07/11/22 09/29/19 History release ferrous fumarate 325 mg (106 mg 325 mg PO DAILY 07/11/22 07/11/22 Unknown History iron) tablet Allergies Allergy/AdvReac Type Severity Reaction Status Date / Time No Known Allergies Allergy Verified 07/28/24 12:07 Review of Systems Review of Systems: CONSTITUTIONAL: Denies body aches, fever, chills, or sweats. EYES: Denies visual changes, redness, or discharge. ENT: Denies rhinorrhea, congestion CARDIOVASCULAR: Denies chest pain, palpitations, or edema. RESPIRATORY: Denies cough or dyspnea. GASTROINTESTINAL: Denies abdominal pain, nausea, vomiting, or diarrhea. SKIN: reports laceration to scalp; bruising right leg NEUROLOGIC: Denies headache, numbness, tingling, or weakness. [facility] Past Medical History Medical History (Updated 07/28/24 @ 12:17 by Marisabel Gallagher APRN) Anemia due to chronic blood loss Alcohol use disorder, moderate, in early remission, dependence Other chronic pancreatitis Spontaneous tension pneumothorax Social History Social History Smoking status: Never smoker Second hand tobacco smoke exposure: No Alcohol intake: former Alcohol use details: 42 days alcohol free Substance use: never Substance use type: does not use Lack of Transportation: No Lack of Food: Never True Current Housing: I Have Housing Concerned About Future Housing: No Difficulty Paying Gas/Electric Bills: No Difficulty Paying for Meds: No Currently Unemployed: No Difficulty w/ Childcare or Family Care: No Living arrangements: with family Occupation/Education: occupation Gender identity (if verbalized by the patient): Male Sexual Orientation (if Verbalized by the Patient): Straight or Heterosexual Spiritual care concerns: No Comments At time of signature, I have reviewed and agree with nursing past medical, surgical, social and family history unless otherwise noted. Please see nursing chart for further information. There is no relevant family history pertinent to the presenting complaint Exam Narrative: GENERAL: Well-appearing HEAD: Right frontal scalp laceration, 2cm length, gaping, small amount active bleeding. EYES: conjunctivae clear, PERRLA, and EOMI. ENT: Mucous membranes moist. Oropharynx without edema, erythema or lesions. CHEST: Clear to auscultation. HEART: Regular rate and rhythm. SKIN: Warm, dry. Right medial calf with bruising, no open wound. NEURO: Alert and oriented x3. No deficits. Involuntary tremor. Course Course Emergency Course: Patient is aware of diagnosis, understands and agrees to treatment plan. Anticipatory guidance given. Patient agrees to follow-up as directed and is aware of reasons to seek care at the emergency department. Portions of this record may have been created with voice recognition software Level of Care: Express Care Visit Vital Signs Vital signs: Vital Signs Temperature 97.5 F L 07/28/24 12:05 Pulse Rate 102 H 07/28/24 12:05 Respiratory Rate 16 07/28/24 12:05 Blood Pressure 176/96 H 07/28/24 12:05 Pulse Oximetry 99 07/28/24 12:05 Oxygen Delivery Room Air 07/28/24 12:05 Temperature 97.5 F L 07/28/24 12:05 Pulse Rate 102 H 07/28/24 12:05 Respiratory Rate 16 07/28/24 12:05 Blood Pressure 176/96 H 07/28/24 12:05 Pulse Oximetry 99 07/28/24 12:05 Oxygen Delivery Room Air 07/28/24 12:05 Reviewed Procedures Laceration right frontal scalp: Date: 07/28/24 Size (cm): 2 Description: linear and clean Depth: simple, single layer Pre-repair: irrigated ====== Skin Level ====== Skin layer closed with: dermabond (hair apposition technique) ====== Subcutaneous Layer ====== ====== Muscle Layer ====== ====== Tendon Layer ====== Dressing: Pt refused doretha. Utilized hair apposition technique with proximal wound edge approximation, distal wound edges remain unapproximated, scant bleeding. MDM - Wound/Laceration MDM Narrative Medical decision making narrative: Discussed physical exam findings; scalp laceration. Advised doretha however pt refused and declined to update his tetanus vaccine today. states he only wants to try glue. Pt is advised of the risk of infection and improper wound healing. Advised supportive measures and signs/symptoms to go to the ER. Pt is appropriate for outpt treatment and f/u. Differential Diagnosis Differential diagnosis: Likely laceration, abrasion and avulsion of skin Discharge Plan Discharge Clinical Impression: Laceration of scalp Patient Disposition: Home, Self-Care Condition: Stable Instructions: Antibiotic Form, Head Laceration (ED) Additional Instructions: Your blood pressure reading was elevated (above 120/80) please follow-up with your primary care provider for further evaluation and management. If you develop worsening Blood Pressure symptoms, (headache, vision changes, dizziness, vomiting, chest pain, etc) go to the ER. Call 911. You were advised to have the wound closed with doretha to reduce the risk of infection. You are aware of the risk of using glue, may not close the wound as effectively. The glue film will fall off in 5 to 10 days Gentle hair washing in that area. Do not soak your wound. Avoid frequent or prolonged contact with water, including heavy perspiration. This may loosen the skin glue before the wound is healed. Watch for worsening symptoms including pain, redness, swelling, streaking, pus/drainage, fever. Go to the ER with any of these symptoms or concerns. Follow up with primary care provider in 1 week as needed. Patient Language: Bengali Prescriptions: New cephalexin 500 mg capsule 500 mg PO Q12H 5 Days Qty: 10 0RF No Action ferrous fumarate 325 mg (106 mg iron) tablet 325 mg PO DAILY naltrexone 50 mg tablet 50 mg PO DAILY Qty: 60 1RF omeprazole 20 mg Capsule,Delayed Release(Dr/Ec) 20 mg PO DAILY albuterol sulfate [Ventolin HFA] 90 mcg/actuation HFA aerosol inhaler 2 puff INHALATION QID PRN (Reason: Shortness Of Breath) Qty: 8.5 3RF mirtazapine 15 mg tablet 15 mg PO QHS Qty: 90 1RF Follow-up/Referrals: Tramaine Low MD [Primary Care Provider] - Stand Alone Forms: Work/School Release IP Time of Disposition: 12:38
--- OUTSIDE RECORDS SUMMARY | 2024-07-28 13:21 | XMS_ITS | Clinical Summary ---
Author Organization [facility] Address [address] [place] [address] Care Team Providers Care Whizzer Name Role Phone Tramaine Low MD Primary Care Provider [phone] Allergies No known active allergies Medications omeprazole (PRILOSEC) 20 MG capsule Take 1 capsule (20 mg total) by mouth daily. Active vitamin B-12 (CYANOCOBALAMIN ) 500 MCG tablet Take 1 tablet (500 mcg total) by mouth daily. Active folic acid (FOLVITE) 1 MG tablet Take 1 tablet (1 mg total) by mouth daily. Active mirtazapine (REMERON) 15 MG tablet Take 1 tablet (15 mg total) by mouth nightly at bedtime. Active ferrous sulfate EC 324 (65 Fe) MG tablet Take 1 tablet (324 mg total) by mouth daily with breakfast. 30 tablet 3 Active polyethylene glycol (GLYCOLAX) 17 GM/SCOOP powder Take 17 g by mouth daily as needed (constipation) . 255 g 3 Active albuterol sulfate HFA 108 (90 Base) MCG/ACT inhaler INHALE 2 PUFFS BY MOUTH 4 TIMES DAILY NEEDED FOR SHORTNESS OF BREATH 3 Active Active Problems Problem Noted Date Diagnosed Date Anemia 06/13/2022 Chronic pancreatitis (CMS/HCC HHS/HCC) 1 Acute on chronic pancreatitis (CMS/HCC HHS/HCC) 10/26/2020 Pancreatitis, acute (HHS/HCC) 07/08/2020 Pancreatitis (HHS/HCC) 07/07/2020 Resolved Problems Problem Noted Date Diagnosed Date Resolved Date Pancreatitis (HHS/HCC) 05/31/202006/011 Family History Medical History Relation Comments Cancer Brother Heart Disease Father MA Father Heart Disease Maternal Grandfather Relation Status Comments Brother Father Maternal Grandfather Mother Alive Social History Tobacco Use Types Packs/Day Years Used Date Smoking Tobacco: Never Smokeless Tobacco: Never Alcohol Use Standard Drinks/Week Comments Not Currently 0 (1 standard drink = 0.6 oz pure alcohol) Quit in early 2019; still drinks socially on occasion. Humiliation, Afraid, Rape, and Kick questionnair e Answer Date Recorded Within the last year, have y ou been afraid of your partner or ex-partner? No 06/13/2022 Within the last year, have y ou been humiliated or emotionally abused in other ways by your partner or ex-partner? No Within the last year, have y ou been kicked, hit, slapped, or otherwise physically hurt by your partner or ex-partner? No 06/13/2022 Within the last year, have y ou been raped or forced to have any kind of sexual activity by your partner or ex-partner? No 06/13/2022 Overall Financial Resource Strain (CARDIA) Answe r Date Recorded How hard is it for you to pa y for the very basics like food, housing, medical care, and heating? Not very hard 06/13/2022 Hunger Vital Sign Answer Date Recorded Within the past 12 months, y ou worried that your food would run out before you got the money to buy more. Never true 06/13/19 23 Within the past 12 months, t he food you bought just didn't last and you didn't have money to get more. Never true 06/13/2022 PRAPARE - Transportation Answer Date Re corded In the past 12 months, has l ack of transportation kept you from medical appointments or from getting medications? No 05/31 In the past 12 months, has l ack of transportation kept you from meetings, work, or from getting things needed for daily living? No 06/13/2022 Housing Stability Vital Sign Answer Khadar e Recorded In the last 12 months, was t here a time when you were not able to pay the mortgage or rent on time? No 06/13/2022 In the last 12 months, how many places have you lived? 2 06/13/2022 In the last 12 months, was t here a time when you did not have a steady place to sleep or slept in a care home (including now)? No 06/13/2022 Sex and Gender Information Value Date Recorded Sex Assigned at Male 05/31/2020 11:00 PM PRINT BUYER Legal Sex Male 8:28 PM CDT Gender Identity Male 05/31/2020 11:00 PM PRINT BUYER Sexual Orientation Straight 05/31/2020 11 :00 PM PRINT BUYER Last Filed Vital Signs Vital Sign Reading Time Taken Comments Blood Pressure 125/95 07/28/2022 6:45 AM CDT Pulse 92 07/28/2022 6:45 AM CDT Temperature 36.7 C (98 F) 07/28/2022 6:29 AM CDT Respiratory Rate 12 07/28/2022 6:45 AM CDT Oxygen Saturation 95% 07/28/2022 6:45 AM CDT Inhaled Oxygen Concentration - - Weight 63.5 kg (140 lb) 07/24/2022 1:59 PM CDT Height 177.8 cm (5' 10 ) 07/24/2022 1:59 PM CDT Body Mass Index 20.09 07/24/2022 1:59 PM CDT Plan of Treatment Health Maintenance Due Date Last Done Comments Annual Physical 06/30/1982 Hepatitis C 06/30/1997 DTaP, Tdap and Td Vaccines ( 1 - Tdap) 06/30/1998 Hepatitis B Vaccines (1 of 3 - 19+ 3-dose series) 06/30/1998 COVID-19 Vaccine (2023-2 5 season) 2023 Influenza Adult (#1) 2024 Colorectal Cancer Screening Colonoscopy (10 Years) 06/15/2032 06/15/2022, 06/14/2022 HPV Vaccines Aged Out No longer eligi ble based on patient's age to complete this topic Meningococcal B Vaccine Aged Out No l onger eligible based on patient's age to complete this topic Meningococcal Vaccine Aged Out No radha vannesa eligible based on patient's age to complete this topic Pneumococcal Vaccine: Pediatrics (0 to 5 Years) and At-Risk Patients (6 to 64 Years) Aged Out No longer eligible b ased on patient's age to complete this topic RSV Immunizations Under 20 Months Aged Out No longer eligible b ased on patient's age to complete this topic Goals Goal Patient Goal Type Associated Problems Recent Progress Patient-Stated? Author Monitor - able to maintain pain control General No Letty Padilla RN Medical Devices Implanted Type Area Senior Business Development Manager Device Identifier Shelf Expiration Date Model / Serial / Lot Pillcam Implanted:Qty: 1 on 06/15/2022 by Nathan Shepherd DO at [facility] [id number] 08/26/2023 / / [id number] Procedures Procedure Name Priority Date/Time Associated Diagnosis Comments COLONOSCOPY Routine 06/14/2022 12:13 PM PRINT BUYER from Last 3 Months or Most Recently Relevant to Health Maintenance Insurance [facility] Advance Directives * Full Code (Latest Code Status on File) Date Activated Date Inactivated Comments 06/13/2022 6:50 PM 06/16/2022 1:32 PM * Full Code Date Activated Date Inactivated Comments 03/21/2021 4:06 PM 03/23/2021 5:43 PM * Full Code Date Activated Date Inactivated Comments 10/26/2020 3:49 PM 10/28/2020 7:18 PM * Full Code Date Activated Date Inactivated Comments 07/07/2020 8:58 PM 07/15/2020 4:22 PM * Full Code Date Activated Date Inactivated Comments 05/31/2020 9:55 PM 06/01/2020 9:50 PM Care Teams Whizzer Relationship Specialty Start Date End Date Tramaine Low MD [address] [place] [id number] PCP - General FAMILY PRACTICE 05/31/20
--- OUTSIDE RECORDS SUMMARY | 2024-07-28 13:21 | XMS_ITS | Clinical Summary ---
Author Organization [facility] Address [address] [place] [id number] Care Team Providers Care Instructor Wastewater Treatment Plant Name Role Phone Tramaine Low MD Primary Care Provider [phone] Allergies No known active allergies Medications albuterol sulfate (VENTOLIN HFA INHAL) Inhale as needed Active amLODIPine (NORVASC) 5 mg tablet Take 5 mg by mouth daily 08/26/2020 Active omeprazole (PriLOSEC) 20 mg capsule Take 20 mg by mouth daily Active Active Problems No known active problems Family History Medical History Relation Name Comments Cancer Brother Heart attack Father Hypertension Father Relation Name Status Comments Brother Father Mother Alive Social History Tobacco Use Types Packs/Day Years Used Date Smoking Tobacco: Never Smokeless Tobacco: Never Personal Safety Answer Date Recorded Getting School Help Needed Not on file 04/29 Sex and Gender Information Value Date Recorded Sex Assigned at Not on file Legal Sex Male 10:32 AM CDT Gender Identity Not on file Sexual Orientation Not on file Obstetrics History Last Filed Vital Signs Vital Sign Reading Time Taken Comments Blood Pressure 155/93 10/06/2020 2:26 PM CDT Pulse 73 10/06/2020 2:26 PM CDT Temperature 36.4 C (97.5 F) 08/25/2020 2:34 PM CDT Respiratory Rate - - Oxygen Saturation 99% 10/06/2020 2:26 PM CDT Inhaled Oxygen Concentration - - Weight 57.1 kg (125 lb 12.8 oz) 10/06/2020 2:26 PM CDT Height 177.8 cm (5' 10 ) 10/06/2020 2:26 PM CDT Body Mass Index 18.05 10/06/2020 2:26 PM CDT Plan of Treatment Not on file Insurance [facility] Address: [place] [address] [facility] Address: [place] [address] Care Teams Instructor Wastewater Treatment Plant Relationship Specialty Start Date End Date Tramaine Low MD [address] [place] [id number] PCP - General Family Medicine 07/23/20
--- OUTSIDE RECORDS SUMMARY | 2024-07-28 13:21 | XMS_ITS | Referral Summary ---
Author Organization [facility] Address [address] [place] [id number] Care Team Providers Care Extension Clerk Name Role Phone Tramaine Low MD Primary Care Provider [phone] Allergies No known active allergies Medications albuterol sulfate (VENTOLIN HFA INHAL) Inhale as needed Active amLODIPine (NORVASC) 5 mg tablet Take 5 mg by mouth daily 08/26/2020 Active omeprazole (PriLOSEC) 20 mg capsule Take 20 mg by mouth daily Active Active Problems No known active problems Social History Tobacco Use Types Packs/Day Years Used Date Smoking Tobacco: Never Smokeless Tobacco: Never Personal Safety Answer Date Recorded Getting School Help Needed Not on file 04/29 Sex and Gender Information Value Date Recorded Sex Assigned at Not on file Legal Sex Male 10:32 AM CDT Gender Identity Not on file Sexual Orientation Not on file Last Filed Vital Signs Vital Sign Reading [...] Plan of Treatment Not on file Insurance Care Teams Extension Clerk Relationship Specialty Start Date End Date Tramaine Low MD [address] [place] [id number] PCP - General Family Medicine 07/23/20
--- OUTSIDE RECORDS SUMMARY | 2024-07-28 13:21 | XMS_ITS | Encounter Summary ---
Author Organization [facility] Address [address] [place] [address] Care Team Providers Care Shells Inspector Name Role Phone Tramaine Low MD Primary Care Provider [phone] Encounter Details Date Type Department Care Team (Late st Contact Info) Description 10/05/2020 Telephone [facility] [id number] [place] [address] Wendy Padilla RT Social History Tobacco Use Types Packs/Day Years Used Date Smoking Tobacco: Never Smokeless Tobacco: Never Sex and Gender Information Value Date Recorded Sex Assigned at Not on file Legal Sex Male 10:32 AM CDT Gender Identity Not on file Sexual Orientation Not on file documented as of this encounter Plan of Treatment Not on file documented as of this encounter Visit Diagnoses Not on filedocumented in this encounter Care Teams Shells Inspector Relationship Specialty Start Date End Date Tramaine Low MD [address] [place] [id number] PCP - General Family Medicine 07/23/20 documented as of this encounter
--- OUTSIDE RECORDS SUMMARY | 2024-07-28 13:21 | XMS_ITS | Encounter Summary ---
Author Organization [facility] Address [address] [place] [address] Care Team Providers Care Green Ware Caster Name Role Phone Tramaine Low MD Primary Care Provider [phone] Encounter Details Date Type Department Care Team (Late st Contact Info) Description 03/28/2021 Hospital Follow-up Call [facility] [address] [place] [address] Winnie Ortez RN Social History Tobacco Use Types Packs/Day Years Used Date Smoking Tobacco: Never Smokeless Tobacco: Never Alcohol Use Standard Drinks/Week Comments Not Currently 0 (1 standard drink = 0.6 oz pure alcohol) Quit in early 2019; still drinks socially on occasion. Sex and Gender Information Value Date Recorded Sex Assigned at Male 05/31/2020 11:00 PM HYDRAULIC ROCK DRILL OPERATOR Legal Sex Male 8:28 PM CDT Gender Identity Male 05/31/2020 11:00 PM HYDRAULIC ROCK DRILL OPERATOR Sexual Orientation Straight 05/31/2020 11 :00 PM HYDRAULIC ROCK DRILL OPERATOR COVID-19 Exposure Response Date Recorded In the last month, have you been in contact with someone who was confirmed or suspected to have Coronavirus / COVID-19? No / Unsure 03/21/2021 4:02 AM HYDRAULIC ROCK DRILL OPERATOR documented as of this encounter Functional Status * RETIRED Are you deaf or do you have serious difficulty hearing Answer Date of Assessment Author Status No 03/21/2021 4:00 PM HYDRAULIC ROCK DRILL OPERATOR Activ e * RETIRED Are you blind or do you have serious difficulty seeing, even when wearing glasses? Answer Date of Assessment Author Status No 03/21/2021 4:07 PM HYDRAULIC ROCK DRILL OPERATOR Activ e * Do you have serious difficulty walking or climbing stairs? Answer Date of Assessment Author Status No 03/21/2021 4:07 PM Vane Fernandez RN-LP Active * Do you have difficulty dressing or bathing? Answer Date of Assessment Author Status No 03/21/2021 4:07 PM Vane Fernandez RN-LP Active * Because of a physical, mental, or emotional condition, do you have difficulty doing errands alone such as visiting a doctor's office or shopping? Answer Date of Assessment Author Status No 03/21/2021 4:07 PM Vane Fernandez RN-LP Active documented as of this encounter Mental Status * Because of a physical, mental, or emotional condition, do you have serious difficulty concentrating, remembering, or making decisions? Answer Entry Date Author Status No 03/21/2021 4:07 PM Vane Fernandez RN-LP Active documented in this encounter Plan of Treatment Not on file documented as of this encounter Goals Goal Patient Goal Type Associated Problems Recent Progress Patient-Stated? Author Monitor - able to maintain pain control General No Letty Padilla RN documented as of this encounter Visit Diagnoses Not on filedocumented in this encounter Additional Health Concerns Infection Onset Date Last Indicated Resolved Time COVID-19 Rule Out 06/13/2022 06/13/2022 06/13/2022 9:46 PM HYDRAULIC ROCK DRILL OPERATOR documented as of this encounter Care Teams Green Ware Caster Relationship Specialty Start Date End Date Tramaine Low MD [address] [place] [address] PCP - General FAMILY PRACTICE 05/31/20 documented as of this encounter
== END 2024-07-28 12:40 | disposition home or self-care (01) ==
PROVIDERS: Emergency Provider Nurse Practitioner Family; PCP Family Medicine
DX: S01.01XA Laceration without foreign body of scalp, initial encounter (principal); W20.8XXA Other cause of strike by thrown, projected or falling object, initial encounter; D50.0 Iron deficiency anemia secondary to blood loss (chronic); K86.1 Other chronic pancreatitis
CPT/HCPCS: 12001; 99213; G0463